=== PATIENT | female | born 1960 | race Caucasian/White ===

== ENCOUNTER 2020-03-01 14:06 | Outpatient (CLI) | payer OTHER ==
--- NOTE | 2020-03-01 14:49 | MMO ---
Bilateral MAMMO Bilat Screen [facility]. CLINICAL HISTORY: Patient is 59 years old and is seen for screening. The patient has the following family history of breast cancer: sister, at age 67, Ductal carcinoma in situ., bilateral. The patient has no personal history of cancer. The patient has a history of bilateral Implants at age 41 - benign. VIEWS: The views performed were: bilateral craniocaudal with tomosynthesis and bilateral mediolateral oblique with tomosynthesis. FILMS COMPARED: The present examination has been compared to prior imaging studies performed at [facility] on 10/17/2011 and 06/22/2016, and at [facility] on 10/07/2004 and 01/05/2006. This study has been interpreted with the assistance of computer-aided detection. MAMMOGRAM FINDINGS: The breasts are heterogeneously dense, which could obscure a lesion on mammography. There are no suspicious masses, suspicious calcifications, or new areas of architectural distortion. Normal implants are present. IMPRESSION: THERE IS NO MAMMOGRAPHIC EVIDENCE OF MALIGNANCY. A ROUTINE FOLLOW-UP MAMMOGRAM IN 1 YEAR IS RECOMMENDED. THE RESULTS OF THIS EXAM WERE SENT TO THE PATIENT. ACR BI-RADS Category 1 - Negative MAMMOGRAPHY NOTE: 1. A negative mammogram report should not delay a biopsy if a dominant of clinically suspicious mass is present. 2. Approximately 10% to 15% of breast cancers are not detected by mammography. 3. Adenosis and dense breasts may obscure an underlying neoplasm. Reported by: LELIA SIMMS MD Electonically Signed: [id number]
== END 2020-03-01 14:07 | disposition home or self-care (01) ==
LOC: BICMAMMO 14:06
PROVIDERS: ATTEND Internal Medicine
DX: Z12.31 Encounter for screening mammogram for malignant neoplasm of breast (principal); Z80.3 Family history of malignant neoplasm of breast; Z98.82 Breast implant status
CPT/HCPCS: 77063; 77067

== ENCOUNTER 2020-03-01 14:39 | Outpatient (CLI) | payer OTHER ==
--- NOTE | 2020-03-01 15:23 | ULT ---
Pelvic sonogram transabdominal and transvaginal imaging HISTORY: Pelvic pain. FINDINGS: Urinary bladder is incompletely distended. Uterus has a heterogeneous echotexture and is 5. 4 cm. Endometrium is 0.3 cm with small focus of nonspecific dystrophic calcification at the fundus. No focal mass evident. No free fluid in the pelvis. Neither ovary is visualized with transabdominal or transvaginal imaging. No adnexal masses evident. IMPRESSION : No acute abnormalities are demonstrated. Nonvisualization of the ovaries (possibly atrophied).
== END 2020-03-01 14:40 | disposition home or self-care (01) ==
LOC: BICULT 14:39
PROVIDERS: ATTEND Internal Medicine
DX: R10.2 Pelvic and perineal pain (principal)
CPT/HCPCS: 76856